=== PATIENT | male | born 1990 | race Caucasian/White ===

== ENCOUNTER 2024-02-15 15:49 | Emergency (ER) | payer OTHER ==
[~2024-02-15] VITALS: Ht 182.9 cm; Wt 110.7 kg
[2024-02-15 19:06] VITALS: BP 128/80; PULSE 78; RESP 16; TEMP 98; O2SAT 95
[2024-02-15] MEDS ORDERED: IBUP1TAB5 PO (19:21)
[2024-02-15] MEDS ORDERED: CEPH500C PO (19:21)
[2024-02-15] MEDS ORDERED: MUPI2OIN2 EX (19:22)
[2024-02-15] MEDS: NEOMYCIN-BACITRACIN-POLYM UNITDOSE PKG TOP OINT TOP ONE (19:48)
[2024-02-15] MEDS: TETANUS-DIPTH-ACEL PERTUSSIS 0.5ML SYR Tdap IM ONE (19:48)
[2024-02-15] MEDS: IBUPROFEN 600 MG TAB PO ONE (19:49)
== END 2024-02-15 20:02 | disposition home or self-care (01) ==
LOC: ER 15:49
DX: S61.210A Laceration without foreign body of right index finger without damage to nail, initial encounter (principal); W26.0XXA Contact with knife, initial encounter; Y93.89 Activity, other specified; Y92.69 Other specified industrial and construction area as the place of occurrence of the external cause; Y99.8 Other external cause status
CPT/HCPCS: 12002; 90471; 90715